=== PATIENT | male | born 1980 | race Caucasian/White ===

== ENCOUNTER 2019-08-23 19:15 | Inpatient (IN) | payer OTHER ==
[2019-08-23 20:19] VITALS: BMI 23.5
--- NOTE | 2019-08-23 21:39 | HP ---
COWS - Scale Resting Pulse: 1= [place] 81-100 Sweatin=Flushed/Facial Moisture Restless Observation: 0= Sits Still Pupil Size: 0= Normal to Room Light Bone or Joint Aches: 1= Mild Discomfort Runny Nose/ Eye Tearin= None GI Upset > 30mins: 1= Stomach Cramp Tremor Observation: 2= Slight Tremor Visible Yawning Observation: 2= >3x During Session Anxiety or Irritability: 4=Extreme Anxiety Goose Flesh Skin: 3=Piloerection COWS Score: 16 CIWA Score - Admission Criteria [facility]ASAS Guidelines: Admission for Medically Managed Detox: Requires at least one of the followin. CIWA greater than 12 2. Seizures within the past 24 hours 3. Delirium tremens within the past 24 hours 4. Hallucinations within the past 24 hours 5. Acute intervention needed for co occurring medical disorder 6. Acute intervention needed for co occurring psychiatric disorder 7. Severe withdrawal that cannot be handled at a lower level of care (continued vomiting, continued diarrhea, abnormal vital signs) requiring intravenous medication and/or fluids 8. Admission [facility] Chief Complaint: Heroin withdrawal symptoms Allergies/Adverse Reactions: Allergies Allergy/AdvReac Type Severity Reaction Status Date / Time No Known Allergies Allergy Verified 08/23/19 20:02 History of Present Illness: 39 years old male with 15 years of heroin dependence is seeking admission to detox. This is his first admission to [facility]. He reports multiple admissions to detox and states that his last detox was at [facility]. He reports that he was at [facility] for bilateral hand abscess and was prescribed antibiotics. He denies past medical and psychiatric history. Patient was recently evaluated at [facility] and declines psych. evaluation at this time. Denies seizures and blackouts and reports that his last overdose was about nine months ago. Data Detail Level: Printer-Friendly View Confidential Drug Utilization Report Search Terms: damon cruz, 1980 Search Date: 08/23/2019 09:28:24 PM The Drug Utilization Report below displays all of the controlled substance prescriptions, if any, that your patient has filled in the last twelve months. The information displayed on this report is compiled from pharmacy submissions to the Department, and accurately reflects the information as submitted by the pharmacies. There are no results for the search terms that you entered. 2017 [facility] Department of Health - [place] of Narcotic Enforcement 08/23/2019 21:28:24 . Exam Limitations: No Limitations - Ebola screening Have you traveled outside of the country in the last 21 days: No (N) Have you had contact with anyone from an Ebola affected area: No Do you have a fever: No - Review of Systems Constitutional: Chills, Malaise, Night Sweats EENT: reports: No Symptoms Reported Respiratory: reports: No Symptoms reported Cardiac: reports: No Symptoms Reported GI: reports: Poor Appetite, Poor Fluid Intake, Abdominal cramping : reports: No Symptoms Reported Musculoskeletal: reports: Back Pain Integumentary: reports: Change in Color, Dryness Neuro: reports: Tremors Endocrine: reports: Unexplained Weight Loss Hematology: reports: No Symptoms Reported Psychiatric: reports: Mood/Affect Appropiate, Orientated x3, Anxious Other Systems: Reviewed and Negative Patient History - Patient Medical History Hx Anemia: No Hx Asthma: No Hx Chronic Obstructive Pulmonary Disease (COPD): No Hx Cancer: No Hx Cardiac Disorders: No Hx Congestive Heart Failure: No Hx Hypertension: No Hx Hypercholesterolemia: No HX Cerebrovascular Accident: No Hx Seizures: No Hx Dementia: No Hx Diabetes: No Hx Gastrointestinal Disorders: No Hx Liver Disease: No Hx Genitourinary Disorders: No Hx Sexually Transmitted Disorders: No Hx Renal Disease (ESRD): No Hx Thyroid Disease: No Hx Human Immunodeficiency Virus (HIV): No (Negative 2018) Hx Hepatitis C: No Hx Depression: No Hx Suicide Attempt: No (Denies suicidal ideation at this time) Hx Bipolar Disorder: No Hx Schizophrenia: No - Patient Surgical History Past Surgical History: Yes Hx Orthopedic Surgery: Yes (Right humerus bone 1995, ) Other Surgical History: Bone grafting 1996 - PPD History Previous Implant?: Yes Documented Results: Negative w/o proof Implanted On Prior R Admission?: No PPD to be Administered?: Yes - Reproductive History Patient is a Female of Child Bearing Age (11 -55 yrs old): No (male) - Smoking Cessation Smoking history: Current every day smoker Have you smoked in the past 12 months: Yes Aproximately how many cigarettes per day: 30 Hx Chewing Tobacco Use: No Initiated information on smoking cessation: Yes 'Breaking Loose' booklet given: 08/23/19 - Substance & Tx. History Hx Alcohol Use: No Hx Substance Use: Yes Substance Use Type: Cocaine, Heroin Hx Substance Use Treatment: Yes ([facility]) - Substances abused Heroin Substance route: Injection Frequency: Daily Amount used: 3 to 30 bags Age of first use: 24 Date of last use: 08/23/19 Cocaine Substance route: Injection Frequency: Daily Amount used: 100 dollars Age of first use: 15 Date of last use: 08/19/19 Crack Substance route: Smoking Frequency: Daily Amount used: 100 dollars Age of first use: 15 Date of last use: 08/19/19 Admission Physical Exam [facility] - Vital Signs Vital Signs: Vital Signs - 24 hr 08/23/19 08/23/19 20:02 20:38 Temperature 97.9 F 97.9 F Pulse Rate 100 H 100 H Respiratory 20 20 Rate Blood Pressure 150/86 150/86 - Physical General Appearance: Yes: Moderate Distress, Tremorous, Sweating HEENTM: Yes: Within Normal Limits, Hearing grossly Normal Respiratory: Yes: Lungs Clear, Normal Breath Sounds, No Respiratory Distress Neck: Yes: Supple Breast: Yes: Breast Exam Deferred Cardiology: Yes: Tachycardia Abdominal: Yes: Normal Bowel Sounds Genitourinary: Yes: Within Normal Limits Back: Yes: Normal Inspection Musculoskeletal: Yes: Within Normal Limits Extremities: Yes: Tremors Neurological: Yes: Within Normal Limits, Alert, Normal Mood/Affect Integumentary: Yes: Warm Lymphatic: Yes: Within Normal Limits - Diagnostic (1) Opioid dependence with withdrawal Current Visit: Yes Status: Acute (2) Nicotine dependence Current Visit: Yes Status: Acute Cleared for Admission [facility] - Detox or Rehab [facility] Level of Care: Medically Managed Detox Regimen/Protocol: Methadone Breathalyzer - Breathalyzer Breathalyzer: 0 Urine Drug Screen - Test Device Lot number: [id number] Expiration date: 03/24/21 - Control Is test valid?: Yes - Results Drug screen NEGATIVE: No Urine drug screen results: MOP-Opiates, MTD-Methadone Inpatient Rehab Admission - Rehab Decision to Admit Inpatient rehab admission?: No
[2019-08-23] MEDS ORDERED: MELATONIN 5 MG TABLETS PO PRN (22:35)
[2019-08-23] MEDS ORDERED: hydrOXYzine PAMOATE 25 MG CAPSULE (FP) PO PRN (22:35)
[2019-08-23] MEDS ORDERED: MAGNESIUM HYDROX 2400MG/30ML ORAL SUSPENSION 30 ML CUP PO PRN (22:35)
[2019-08-23] MEDS ORDERED: MAGNESIUM CITRATE 300 ML BOTTLE PO PRN (22:35)
[2019-08-23] MEDS ORDERED: MAG HYDROX/AL HYDROX/SIMETH 30 ML UNIT-DOSE CUP PO PRN (22:35)
[2019-08-23] MEDS ORDERED: BISMUTH SUBSALICYLATE 524 MG/30 ML UD PO PRN (22:35)
[2019-08-23] MEDS ORDERED: cloNIDine HCL 0.1 MG TABLET PO PRN (22:35)
[2019-08-23] MEDS ORDERED: MENTHOL/PHENOL 1 EACH UD MM PRN (22:35)
[2019-08-23] MEDS ORDERED: METHADONE HCL 10 MG TABLET (FOR DETOX USE ONLY) PO ONE (22:35)
[2019-08-23] MEDS ORDERED: IBUPROFEN 400 MG TABLET (FP) PO PRN (22:35)
[2019-08-23] MEDS ORDERED: ACETAMINOPHEN 325 MG TABLET (FP) PO PRN ×2 (22:35)
[2019-08-23] MEDS ORDERED: NICOTINE POLACRILEX 2 MG GUM BUC PRN (22:35)
[2019-08-23] MEDS ORDERED: METHOCARBAMOL 500 MG TABLET PO PRN (22:35)
[2019-08-24] MEDS ORDERED: CEPHALEXIN MONOHYDRATE 500 MG CAPSULE (UD) PO SCH
[2019-08-24 00:02] VITALS: BP 168/92; PULSE 71; TEMP 98.2
[2019-08-24] MEDS ORDERED: METHADONE HCL 5 MG TABLET PO ONE (00:17)
--- NOTE | 2019-08-24 03:22 | PN ---
[facility] Progress Note Note: Patient walked out of the unit. Patient was seen and evaluated at the security office where he was hallucinating about Thomas and a girl waiting for him outside. He was informed that he will be transferred to [facility] for Psych. Evaluation. 1:1 constant observation initiated with security watching patient. 911 with police escort was initiated. [employer] transportation with police escort came and patient was endorsed to [employer] personnel and to the Police. Patient eloped in the presence of the police officers. Vital Signs Temperature 98.2 F 08/24/19 00:01 Pulse Rate 71 08/24/19 00:01 Respiratory Rate 18 08/24/19 00:01 Blood Pressure 168/92 08/24/19 00:01 O2 Sat by Pulse Oximetry (%)
--- NOTE | 2019-08-24 04:02 | DS ---
[facility] Detox Discharge Summary Admission Date: 08/23/19 Discharge Date: 08/24/19 - History Additional Comments: Patient eloped Pertinent Past History: Opioid withdrawal symptoms and nicotine dependence - Physical Exam Results Vital Signs: Vital Signs Temperature 98.2 F 08/24/19 00:01 Pulse Rate 71 08/24/19 00:01 Respiratory Rate 18 08/24/19 00:01 Blood Pressure 168/92 08/24/19 00:01 O2 Sat by Pulse Oximetry (%) Pertinent Admission Physical Exam Findings: Opioid withdrawal symptoms - Medication Discharge Medications: Ambulatory Orders NK [No Known Home Medication] 08/23/19 - Diagnosis (1) Opioid dependence with withdrawal Current Visit: Yes Status: Acute (2) Nicotine dependence Current Visit: Yes Status: Acute - AMA Did Patient Leave Against Medical Advice: Yes
[2019-08-24] MEDS ORDERED: NICOTINE 21 MG/24 HOURS TOPICAL PATCH TD SCH (10:00)
[2019-08-24] MEDS ORDERED: PRENATAL VITAMINS W/ FOLIC ACID TABLET (FP) PO SCH (10:00)
[2019-08-24] MEDS ORDERED: METHADONE HCL 5 MG TABLET (FOR DETOX USE ONLY) PO ONE ×2 (10:00)
--- NOTE | 2019-08-24 10:14 | EKG ---
Test Reason : Blood Pressure : / mmHG Vent. Rate : 075 BPM Atrial Rate : 075 BPM P-R Int : 144 ms QRS Dur : 096 ms QT Int : 400 ms P-R-T Axes : 045 053 038 degrees QTc Int : 446 ms NORMAL SINUS RHYTHM NORMAL ECG NO PREVIOUS ECGS AVAILABLE Confirmed by MD Lucinda, Jefferson ([id number]) on 08/24/2019 10:13:38 AM Referred By: NICOLE Confirmed By:Jefferson Jane MD
[2019-08-24] MEDS ORDERED: THIAMINE HCL 100 MG TABLET (FP) PO SCH (22:00)
[2019-08-25] MEDS ORDERED: METHADONE HCL 10 MG TABLET (FOR DETOX USE ONLY) PO ONE (10:00)
[2019-08-25] MEDS ORDERED: METHADONE HCL 5 MG TABLET (FOR DETOX USE ONLY) PO ONE (10:00)
[2019-08-26] MEDS ORDERED: METHADONE HCL 5 MG TABLET (FOR DETOX USE ONLY) PO ONE (06:00)
[2019-08-26] MEDS ORDERED: METHADONE HCL 10 MG TABLET (FOR DETOX USE ONLY) PO ONE (10:00)
[2019-08-27] MEDS ORDERED: METHADONE HCL 5 MG TABLET (FOR DETOX USE ONLY) PO ONE (06:00)
== END 2019-08-24 03:55 | disposition left against medical advice (07) | DRG 770 ==
LOC: YASAS 19:15 → Y6N 22:46
PROVIDERS: ADMIT Allergy & Immunology; ATTEND Allergy & Immunology
PROC: HZ2ZZZZ Detoxification Services for Substance Abuse Treatment (ICD-10-PCS; principal; 2019-08-23)
DX: F11.23 Opioid dependence with withdrawal (principal); F17.210 Nicotine dependence, cigarettes, uncomplicated; R00.0 Tachycardia, unspecified; Z59.0 Homelessness
CPT/HCPCS: 93005; 93010